=== PATIENT | male | born 1995 | race Caucasian/White ===

== ENCOUNTER 2016-08-09 21:39 | Emergency (ER) | payer BC ==
[~2016-08-09] VITALS: Ht 175.3 cm; Wt 80.0 kg
[2016-08-09 21:41] VITALS: BP 121/61; PULSE 112; RESP 20; TEMP 97.9; O2SAT 97
[2016-08-09] MEDS ORDERED: ONDANSETRON HCL 4 MG/2 ML VIAL IV ONE (23:45)
[2016-08-09] MEDS ORDERED: SODIUM CHLOR 0.9% 1000 ML INJ 1,000 ML IV ONE (23:45)
[2016-08-10 00:07] LABS: ANION GAP 6 MEQ/L (5-15); AST (GOT) 18 U/L (15-39); BICARBONATE 26.2 MEQ/L (21.0-32.0); BLOOD UREA NITROGEN 17 MG/DL (7-18); CHLORIDE 108 MEQ/L (98-107); GLOMERULAR FILTRATION RATE 89 ML/MIN (>89); POTASSIUM 3.9 MEQ/L (3.5-5.1); SODIUM (NA) 140 MEQ/L (136-145)
[2016-08-10] MEDS ORDERED: ZOFR4TAB3 SL (00:09)
--- NOTE | 2016-08-10 00:09 | PD ---
HPI Chief Complaint: Abdominal Pain Time Seen by Provider: 23:37 Travel History International Travel<30 days: No Contact w/Intl Traveler<30days: No Traveled to known affect area: No History of Present Illness HPI The patient is a 21 year old male who presents to the [facility] emergency department with a history of nausea, vomiting, and diarrhea that began at 6 PM today. He reports that it began approximately 30 minutes after he ate [employer] that did not taste good. He reports that the symptoms began with vomiting. He reports that he has vomited 8 times. He reports that he's had diarrhea 8 times. His stool is watery and brown. He denies having any blood in his stool or mucus in his stool. He denies any recent antibiotic use, foreign travel, unusual food intake, or known sick contacts. The patient denies any recent fevers, cough, congestion, neck pain, chest pain, shortness of breath, abdominal pain, urinary symptoms, or neurologic symptoms. PFSH Past Medical History Narrative Medical The patient's past medical history is significant for having an allergy to bee stings. Medical History: Denies Significant Hx Diminished Hearing: No Immunizations Current: Yes Past Surgical History Narrative Surgical The patient's past surgical history is reportedly none. Surgical History: No Previous Surgery Social History Alcohol Use: No Tobacco Use: No Substance Use: No Allergies-Medications (Allergen,Severity, Reaction): Coded Allergies: Bee Sting (Verified Allergy, Intermediate, Hives, 08/09/16) Reported Meds & Prescriptions Reported Meds & Active Scripts Active Zofran Odt (Ondansetron Odt) 4 Mg Tab 4 Mg SL Q6HR PRN Review of Systems Except as stated in HPI: all other systems reviewed are Neg General / Constitutional: No: Fever Eyes: No: Visual changes HENT: No: Headaches Cardiovascular: No: Chest Pain or Discomfort Respiratory: No: Shortness of Breath Gastrointestinal: Positive: Nausea, Vomiting, Changes in Bowel Habits, No: Abdominal Pain, Constipation, Indigestion, Loss of Appetite Genitourinary: No: Dysuria Musculoskeletal: No: Pain Skin: No Rash Neurologic: No: Weakness Psychiatric: No: Depression Endocrine: No: Polydipsia Hematologic/Lymphatic: No: Easy Bruising Physical Exam Narrative General: The patient is a well-developed well-nourished male, uncomfortable appearing initially on my arrival to the room with nausea and retching. Head and Neck exam: Head is normocephalic atraumatic. Eyes: EOMI, pupils are equal round and reactive to light. Nose: Midline septum with pink mucous membranes Mouth: Dentition unremarkable. Moist mucus membranes. Posterior oropharynx is not erythematous. No tonsillar hypertrophy. Uvula midline. Airway patent. Neck: No palpable lymphadenopathy. No nuchal rigidity. No thyromegaly. Cardiovascular: Sinus tachycardia in the low 100s without murmurs, gallops, or rubs. No pulse deficit to the extremities and simultaneous auscultation and palpation of his radial artery. Lungs: Clear to auscultation bilaterally. No wheezes, rhonchi, or rales. Abdomen: Soft, without tenderness to palpation in all 4 quadrants of the abdomen. No guarding, rebound, or rigidity. Normal bowel sounds are audible. No tenderness on palpation of McBurney's point. Negative العلي's sign. Extremities: No clubbing, cyanosis, or edema. No calf tenderness on palpation. Back: No spinous process tenderness to palpation. No costovertebral angle tenderness to palpation. Neurologic Exam: Grossly nonfocal. Skin Exam: No rash noted. Intact skin that is warm and dry. Data Data Last Documented VS Vital Signs Date Time Temp Pulse Resp B/P Pulse Ox O2 Delivery O2 Flow Rate FiO2 08/09/16 23:33 18 08/09/16 21:41 97.9 112 121/61 97 Room Air Orders Complete Blood Count With Diff (08/09/16 23:38) Comprehensive Metabolic Panel (08/09/16 23:38) C-Reactive Protein (Crp) (08/09/16 23:38) Lipase (08/09/16 23:38) Urinalysis - C+S If Indicated (08/09/16 23:38) Iv Access Insert/Monitor (08/09/16 23:38) Ecg Monitoring (08/09/16 23:38) Oximetry (08/09/16 23:38) Sodium Chlor 0.9% 1000 Ml Inj (Ns 1000 M (08/09/16 23:45) Ondansetron Inj (Zofran Inj) (08/09/16 23:45) Sodium Chlor 0.9% 1000 Ml Inj (Ns 1000 M (08/10/16 00:30) Oral Rehydration (08/10/16 01:14) Labs Laboratory Tests Test 08/09/16 23:45 White Blood Count 19.7 TH/MM3 Red Blood Count 5.70 MIL/MM3 Hemoglobin 17.1 GM/DL Hematocrit 49.7 % Mean Corpuscular Volume 87.2 FL Mean Corpuscular Hemoglobin 30.0 PG Mean Corpuscular Hemoglobin 34.5 % Concent Red Cell Distribution Width 13.2 % Platelet Count 186 TH/MM3 Mean Platelet Volume 8.9 FL Neutrophils (%) (Auto) 91.5 % Lymphocytes (%) (Auto) 1.6 % Monocytes (%) (Auto) 5.6 % Eosinophils (%) (Auto) 0.8 % Basophils (%) (Auto) 0.5 % Neutrophils # (Auto) 18.0 TH/MM3 Lymphocytes # (Auto) 0.3 TH/MM3 Monocytes # (Auto) 1.1 TH/MM3 Eosinophils # (Auto) 0.2 TH/MM3 Basophils # (Auto) 0.1 TH/MM3 CBC Comment DIFF FINAL Differential Comment Sodium Level 140 MEQ/L Potassium Level 3.9 MEQ/L Chloride Level 108 MEQ/L Carbon Dioxide Level 26.2 MEQ/L Anion Gap 6 MEQ/L Blood Urea Nitrogen 17 MG/DL Creatinine 1.06 MG/DL Estimat Glomerular Filtration 89 ML/MIN Rate Random Glucose 120 MG/DL Calcium Level 8.3 MG/DL Total Bilirubin 1.8 MG/DL Aspartate Amino Transf 18 U/L (AST/SGOT) Alanine Aminotransferase 32 U/L (ALT/SGPT) Alkaline Phosphatase 70 U/L C-Reactive Protein 0.39 MG/DL Total Protein 7.1 GM/DL Albumin 4.2 GM/DL Lipase 118 U/L [facility] Medical Decision Making Medical Screen Exam Complete: Yes Emergency Medical Condition: Yes Medical Record Reviewed: Yes Interpretation(s) Laboratory Tests Test 08/09/16 23:45 White Blood Count 19.7 TH/MM3 Red Blood Count 5.70 MIL/MM3 Hemoglobin 17.1 GM/DL Hematocrit 49.7 % Mean Corpuscular Volume 87.2 FL Mean Corpuscular Hemoglobin 30.0 PG Mean Corpuscular Hemoglobin 34.5 % Concent Red Cell Distribution Width 13.2 % Platelet Count 186 TH/MM3 Mean Platelet Volume 8.9 FL Neutrophils (%) (Auto) 91.5 % Lymphocytes (%) (Auto) 1.6 % Monocytes (%) (Auto) 5.6 % Eosinophils (%) (Auto) 0.8 % Basophils (%) (Auto) 0.5 % Neutrophils # (Auto) 18.0 TH/MM3 Lymphocytes # (Auto) 0.3 TH/MM3 Monocytes # (Auto) 1.1 TH/MM3 Eosinophils # (Auto) 0.2 TH/MM3 Basophils # (Auto) 0.1 TH/MM3 CBC Comment DIFF FINAL Differential Comment Sodium Level 140 MEQ/L Potassium Level 3.9 MEQ/L Chloride Level 108 MEQ/L Carbon Dioxide Level 26.2 MEQ/L Anion Gap 6 MEQ/L Blood Urea Nitrogen 17 MG/DL Creatinine 1.06 MG/DL Estimat Glomerular Filtration 89 ML/MIN Rate Random Glucose 120 MG/DL Calcium Level 8.3 MG/DL Total Bilirubin 1.8 MG/DL Aspartate Amino Transf 18 U/L (AST/SGOT) Alanine Aminotransferase 32 U/L (ALT/SGPT) Alkaline Phosphatase 70 U/L C-Reactive Protein 0.39 MG/DL Total Protein 7.1 GM/DL Albumin 4.2 GM/DL Lipase 118 U/L Differential Diagnosis Viral versus bacterial gastroenteritis, versus dehydration, versus electrolyte derangements Narrative Course During the course of the patients emergency department visit, the patients history, examination, and differential diagnosis were reviewed with the patient. The patient had IV access obtained and blood work sent for analysis. The patient was placed on a master sheet clerk with oximetry and blood pressure monitoring. The patient was provided normal saline 1 L IV fluid bolus, Zofran 4 mg IV 1. The patients laboratory studies were reviewed and remarkable for a white count of 19.7, hemoglobin 17.1 suggesting hemoconcentration from dehydration, neutrophils 91.5, lymphocytes 1.6, CMP is remarkable for chloride of 108, glucose 120, total bilirubin 1.8, C-reactive protein 0.39, lipase 118. The patient was started on oral rehydration therapy. The patient was given a second liter of normal saline IV fluids. The patient will be discharged home on Zofran. The patient is resting comfortably and feels better, is alert and in no distress. The patients results and examination findings were discussed with the patient. The repeat examination is unremarkable and benign. The history, exam, diagnostic testing, and current condition do not suggest any significant pathology to warrant further testing, continued ED treatment, admission, or surgical evaluation at this point. The vital signs have been stable. The patient does not have uncontrollable pain, intractable vomiting, or other significant symptoms. The patient's condition is stable and appropriate for discharge. The patient will pursue further outpatient evaluation with a primary care physician or other designated or consulting physician as indicated in the discharge instructions. The patient expressed understanding and was agreeable with this plan. Diagnosis Primary Impression: Nausea, vomiting, and diarrhea Referrals: Primary Care Physician 2 days Patient Instructions: Acute Diarrhea (ED), Acute Nausea and Vomiting (ED), General Instructions Med/Other Pt SpecificInfo: Prescription(s) given Scripts Ondansetron Odt (Zofran Odt)4 Mg Tab4 Mg SL Q6HR PRN (Nausea/Vomiting) #7 TAB Ref 0 Prov:Cherry Henry MD 08/10/16 Disposition: 01 DISCHARGE HOME Condition: Stable Cherry Henry MD Aug 10, 2016 00:09
[2016-08-10 00:10] LABS: ALKALINE PHOSPHATASE 70 U/L (45-117); ALT (GPT) 32 U/L (9-52); BASOPHIL # 0.1 TH/MM3 (0-0.2); BASOPHIL % 0.5 % (0.0-2.0); EOSINOPHIL # 0.2 TH/MM3 (0-0.4); EOSINOPHIL % 0.8 % (0.0-4.0); HEMATOCRIT 49.7 % (39.0-51.0); HEMO FLAGS DIFF FINAL; LYMPH % 1.6 % (9.0-44.0); LYMPHOCYTE # 0.3 TH/MM3 (1.0-4.8); MEAN CELL VOLUME 87.2 FL (80.0-100.0); MEAN CORPUSCULAR HGB CONC 34.5 % (32.0-36.0); MONO % 5.6 % (0.0-8.0); NEUT % 91.5 % (16.0-70.0); PLATELET COUNT 186 TH/MM3 (150-450); RED CELL DISTRIBUTION WIDTH 13.2 % (11.6-17.2); TOTAL BILIRUBIN ADULT 1.8 MG/DL (0.2-1.0); WHITE BLOOD COUNT 19.7 TH/MM3 (4.0-11.0)
[2016-08-10] MEDS ORDERED: SODIUM CHLOR 0.9% 1000 ML INJ 1,000 ML IV ONE (00:30)
[2016-08-10 02:28] LABS: BLOOD, URINE NEG (NEG); COMMENT (UR) CULT NOT INDICATED; CULTURE IF INDICATED CULT NOT INDICATED; GLUCOSE,URINE NEG (NEG); KETONE, URINE NEG (NEG); MUCUS URINE FEW /lpf (OCC); NITRITE,URINE NEG (NEG); URINE COLOR YELLOW (YELLW/STRAW)
== END 2016-08-10 02:58 | disposition home or self-care (01) ==
LOC: NEPE 21:39
DX: R11.2 Nausea with vomiting, unspecified (principal); R19.7 Diarrhea, unspecified
CPT/HCPCS: 80053; 81001; 83690; 85025; 86140; 96374; 99284; J2405; J7030